=== PATIENT | female | born 1955 ===

== ENCOUNTER 2017-06-25 12:15 | Inpatient (IN) | payer OTHER ==
[~2017-06-25] VITALS: Ht 160 cm; Wt 68.0 kg
[2017-06-25] MEDS ORDERED: SYNTHROID88 MCG PO (16:02)
[2017-07-05] MEDS ORDERED: IMODIUM A-D2 MG PO (10:42)
[2017-07-05] MEDS ORDERED: ULTRACET PO (10:42)
[2017-07-05] MEDS ORDERED: INTESTINEX680 M1 PO (10:42)
== END 2017-07-05 13:41 | disposition home or self-care (01) | DRG 331 ==
LOC: O/R 07-02 07:41 → SURH 07-02 07:41 → SURG 07-02 11:30 → SURH 07-02 15:28
PROVIDERS: Surgery
PROC: 0DTN4ZZ Resection of Sigmoid Colon, Percutaneous Endoscopic Approach (ICD-10-PCS; 2017-07-02)
PROC: 07TC4ZZ Resection of Pelvis Lymphatic, Percutaneous Endoscopic Approach (ICD-10-PCS; 2017-07-02)
PROC: 0D1B4Z4 Bypass Ileum to Cutaneous, Percutaneous Endoscopic Approach (ICD-10-PCS; 2017-07-02)
PROC: 0DJD8ZZ Inspection of Lower Intestinal Tract, Via Natural or Artificial Opening Endoscopic (ICD-10-PCS; 2017-07-02)
PROC: 0DTP4ZZ Resection of Rectum, Percutaneous Endoscopic Approach (ICD-10-PCS; principal; 2017-07-02 11:30)
DX: C19 Malignant neoplasm of rectosigmoid junction (principal); E03.8 Other specified hypothyroidism; Z93.2 Ileostomy status